=== PATIENT | male | born 1960 | race Two or more races ===

== ENCOUNTER 2023-05-20 15:04 | Emergency (ER) | payer OTHER ==
[~2023-05-20] VITALS: Ht 170.2 cm; Wt 83.9 kg
[2023-05-20] MEDS ORDERED: LOSARTAN POTASS50 MG PO (15:37)
[2023-05-20] MEDS ORDERED: FENOFIBRATE50 MG PO (15:37)
[2023-05-20] MEDS ORDERED: LIPITOR20 MG PO (15:38)
[2023-05-20] MEDS ORDERED: BENZONATATE200 M1 PO (15:44)
== END 2023-05-20 16:40 | disposition home or self-care (01) ==
LOC: ER 15:05
DX: G62.89 Other specified polyneuropathies (principal); I10 Essential (primary) hypertension; Z88.8 Allergy status to other drugs, medicaments and biological substances

== ENCOUNTER 2024-08-12 04:43 | Day surgery (SDC) | payer OTHER ==
[2024-08-10 10:17] LABS: PH,URINE 5.5 (5.0-8.0); URINE APPEARANCE Clear; URINE BILIRRUBIN Negative (NEGATIVE); URINE BLOOD Negative; URINE COLOR Yellow; URINE GLUCOSE Negative (NEGATIVE); URINE KETONE Negative (NEGATIVE); URINE LEUKOCYTE Negative; URINE NITRATE Negative; URINE PROTEIN Negative (NEGATIVE); URINE UROBILINOGEN 0.2 E.U./dl
[2024-08-10 10:19] LABS: URINE BACTERIA 14.6 uL (0.0-1933); URINE EPITHELIAL CELLS 1.7 uL (0.0-38.8); URINE RBC 2.6 uL (0.0-20.8); URINE WBC 2.3 uL (0.0-23.2)
[2024-08-10 10:23] LABS: URINE CAST 0.14 uL (0.0-1.40)
[2024-08-10 10:26] LABS: BASO % 0.3 % (0.1-1.2); EOS # 0.09 (0.04-0.54); HEMATOCRIT 47.3 % (40.1-51.0); HEMOGLOBIN 16.7 g/dL (13.7-17.5); LYMPH # 1.04 (1.18-3.74); MEAN CORPUSCULAR HEMOGLOBIN 29.5 pg (25.6-32.2); MONO # 0.44 (0.24-0.82); NEUT # 1.38 (1.56-6.13); NEUT % 46.6 % (34.0-71.1); PLATELET COUNT 183 K/uL (163-369); RED BLOOD COUNT 5.66 M/uL (4.63-6.08); RED CELL DISTRIBUTION WIDTH 14.4 % (11.6-14.4)
[2024-08-10 10:30] LABS: MONO % 14.8 % (4.7-12.5)
[2024-08-10 11:03] VITALS: BP 116/79
[2024-08-10 11:20] LABS: INR 1.04; PARTIAL THROMBOPLASTIN TIME 25.1 SECONDS (22.0-34.0); PROTHROMBIN TIME 11.3 SECONDS (9.0-11.5)
[2024-08-10 11:53] LABS: ALBUMIN 4.1 gm/dL (3.4-5.0); BILIRUBIN TOTAL 0.75 mg/dL (0.3-1.2); CALCIUM 9.1 mg/dL (8.5-10.1); CREATININE SERUM 0.82 mg/dL (0.70-1.30); GFR 95.2; POTASSIUM 4.19 mEq/L (3.5-5.1); TOTAL PROTEIN 7.1 gm/dL (6.4-8.2)
[~2024-08-12] VITALS: Ht 170.2 cm; Wt 83.5 kg
[~2024-08-12 04:43] MED LIST: BENZONATATE200 M1 PO; COQ-10100 MG; EZALLOR SPRINKL10 MG PO; FENOFIBRATE50 MG PO; LIPITOR20 MG PO; LOSARTAN POTASS50 MG PO; LYRICA50 MG PO; XARELTO20 MG
[2024-08-12] MEDS ORDERED: CEFAZOLIN SODIUM 1,000 MG VIAL IV ONE (09:15)
[2024-08-12] MEDS ORDERED: SUGAMMADEX SODIUM 200 MG/2 ML VIAL IV ONE (11:30)
[2024-08-12] MEDS ORDERED: MORPHINE SULFATE 4 MG/ML VIAL IV ONE ×2 (12:35→13:05)
== END 2024-08-12 15:50 | disposition home or self-care (01) ==
LOC: CIR.AMB 04:43
PROVIDERS: ATTEND Surgery
DX: K40.20 Bilateral inguinal hernia, without obstruction or gangrene, not specified as recurrent (principal); K42.0 Umbilical hernia with obstruction, without gangrene; Z88.8 Allergy status to other drugs, medicaments and biological substances
CPT/HCPCS: 49650; 49593; C1781